=== PATIENT | female | born 1985 | race Caucasian/White ===

== ENCOUNTER 2019-04-02 05:56 | Inpatient (IN) ==
[2019-04-02] MEDS ORDERED: LIDOCAINE HCL 50 ML VIAL PERI PRN (06:13)
[2019-04-02] MEDS ORDERED: ONDANSETRON 4 MG TAB.RAPDIS PO PRN (06:13)
[2019-04-02] MEDS ORDERED: RINGER'S SOLUTION,LACTATED 1,000 ML IV PRN (06:13)
[2019-04-02] MEDS ORDERED: OXYTOCIN/DEXTROSE 5%-WATER 30 UNITS/500 ML BAG IV ONE ×2 (06:13→19:08)
[2019-04-02] MEDS ORDERED: NALBUPHINE HCL 10 MG/ML AMPUL IV PRN ×2 (06:13)
[2019-04-02 07:00] LABS: Cocaine Ur Negative (NEGATIVE); Urine Barbiturate Negative (NEGATIVE); Urine Benzodiazepines Negative (NEGATIVE); Urine Opiates Negative (NEGATIVE); Urine PCP Negative (NEGATIVE); Urine THC Negative (NEGATIVE)
[2019-04-02] MEDS ORDERED: MISOPROSTOL 100 MCG TABLET VG ONE (07:09)
[2019-04-02] MEDS ORDERED: TERBUTALINE SULFATE 1 MG/ML VIAL SC ONE (07:51)
--- NOTE | 2019-04-02 08:38 | HP ---
Chief Complaint - Chief Complaint Date of Service: 04/02/19 Time of Service: 08:30 Chief Complaint: Labor induction History of Present Illness: 33 year old at 39w 1d who presents to labor and delivery for a medical induction of labor due to CHTN. She denies regular ctx, vb or lof. Fetus is active. 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 Surgical History: Surgical History (Updated 08/11/18 @ 16:47 by Taniya Shoemaker LPN) History of loop electrosurgical excision procedure (LEEP) Onset Date: ~2012 abnormal pap smear History of removal of cyst right wrist x2 History of tonsillectomy age 19 History of wisdom tooth extraction Hx of cholecystectomy Onset Date: ~2012 Family History: Family History (Updated 08/14/18 @ 15:24 by Angelia Bradley CMA) Mother Diabetes type II DM Father Alive and well Grandmother , maternal Cancer breast CA (BRCA) Social History: (Last Reviewed 04/02/19 @ 08:33 by Jacque Her MD) Social History: adopted: No Marital status: household members: children, spouse current occupational status: employed current occupation: [employer] current occupational exposures/hazards: No Highest education level completed: some college, no degree Service: No Tobacco: Smoking Status: Current every day smoker tobacco type: cigarettes Alcohol: alcohol intake: current alcohol intake frequency: holiday/special occasion Substance Use: substance use type: does not use Dietary Habits: caffeine: Yes caffeine comment: 6 daily Type: carbonated beverages Review Of Systems (GEN) - Review of Systems Generalized/Overall Review: Present: No Symptoms Reported Misc: All systems neg except as marked Allergies/Adverse Reactions: Allergies Allergy/AdvReac Type Severity Reaction Status Date / Time morphine AdvReac hives Verified 04/02/19 06:12 tomato AdvReac cold sores Verified 04/02/19 06:12 latex AdvReac RASH Uncoded 04/02/19 06:12 Exam - Exam Vital Signs: Vital Signs - Last Taken Temp 36.3 C 04/02/19 06:58 Pulse 72 04/02/19 06:58 Resp 18 04/02/19 06:58 BP 123/64 04/02/19 06:58 Pulse Ox 98 04/02/19 06:58 Constitutional: Present: Alert, Oriented x3, Cooperative, No distress Respiratory: Present: lungs clear, normal breath sounds Cardiovascular/Chest: Present: regular rate, rhythm, no murmur Abdomen: Present: soft, nontender, nondistended /Rectal: Present: Exam deferred Extremity: Present: non-tender, no calf tenderness Skin Exam: Present: normal color, warm/dry, no cyanosis Appearance: Present: appropriate appearance Eye contact: Present: cooperative Thoughts: Present: normal thought pattern Diagnostic Studies: Laboratory Results Negative (NEGATIVE) 04/02/19 Unknown Negative (NEGATIVE) 04/02/19 Unknown Ur Phencyclidine Scrn Negative (NEGATIVE) 04/02/19 Unknown Urine Amphetamine Negative (NEGATIVE) 04/02/19 Unknown U Benzodiazepines Scrn Negative (NEGATIVE) 04/02/19 Unknown Negative (NEGATIVE) 04/02/19 Unknown Negative (NEGATIVE) 04/02/19 Unknown Blood Type AB Negative 04/02/19 06:27 Antibody Screen Positive 04/02/19 06:27 Assessment/Plan - Narrative Narrative: 33 year old at 39w 1d 1. Medical IOL for CHTN: BP is normal today. Cytotec started due to nonfavorable cervix 2. GBS negative: prophylaxis not indicated 3. FHT cat 1. Of note, the patient had a 4-minute deceleration to a nguyen of 60 which resolved spontaneously. A fluid bolus was given.
[2019-04-02] MEDS ORDERED: ONDANSETRON HCL/PF 2 MG/ML VIAL IV PRN (13:49)
[2019-04-02] MEDS ORDERED: BUPIVACAINE HCL/0.9 % NACL/PF 250 ML EP PRN (13:49)
[2019-04-02] MEDS ORDERED: NALOXONE HCL 1 MG/1 ML SYRG IV PRN (13:49)
[2019-04-02] MEDS: RINGER'S SOLUTION,LACTATED 1,000 ML IV ONE (13:57)
[2019-04-02] MEDS ORDERED: fentaNYL CITRATE/PF 50 MCG/ML AMPUL IT SCH (14:00)
--- NOTE | 2019-04-02 14:33 | ANES ---
Anesthesia Pre Procedure Eval Vitals/Labs: Last Vital Signs Temp 36.2 C 04/02/19 14:20 Pulse 60 04/02/19 14:20 Resp 18 04/02/19 14:20 BP 127/69 04/02/19 14:20 Pulse Ox 99 04/02/19 14:20 Allergies/Adverse Reactions: Allergies Allergy/AdvReac Type Severity Reaction Status Date / Time morphine AdvReac hives Verified 04/02/19 06:12 tomato AdvReac cold sores Verified 04/02/19 06:12 latex AdvReac RASH Uncoded 04/02/19 06:12 - Planned Procedure Planned Procedure: INDUCTION Medication List Reviewed:: Yes Allergies Verified: Yes Medical History (Updated 04/02/19 @ 08:38 by Jacque Her MD) High-risk supervision (Chronic) Chronic hypertension (Acute) The patient's BP is normal today Reactive NST Normal CONSUELO B12 deficiency Onset Date: ~2017 Rh incompatibility Tobacco abuse Anxiety and depression Abnormal Pap smear of cervix Onset Date: ~2012 Anemia Benign heart murmur congenital, 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 Surgical History (Updated 04/02/19 @ 08:38 by Jacque Her MD) History of loop electrosurgical excision procedure (LEEP) Onset Date: ~2012 abnormal pap smear History of removal of cyst right wrist x2 History of tonsillectomy age 19 History of wisdom tooth extraction Hx of cholecystectomy Onset Date: ~2012 Family History (Updated 08/14/18 @ 15:24 by Angelia Bradley CMA) Mother Diabetes type II DM Father Alive and well Grandmother , maternal Cancer breast CA (BRCA) - Family Anesthesia History Family History:: no untoward family reactions to anesthesia - Airway/Neck/Teeth Within Normal Limits:: Yes Teeth Condition: intact Neck Exam: full range of motion Mallampatti Score: 2 Thyromental (T-M) distance: > 6 cm Mandibulo Hyoid distance: > 3 cm - Respiratory Respiratory Physical: lungs clear Smoking Status: Current every day smoker Discussed smoking cessation including day of surgery: Yes Sleep Apnea currently treated: No Sleep Apnea by current assessment: No - Cardiovascular Tolerate Activity: Fair Heart Sounds: S1 & S2, Regular - Anesthesia Assessment and Plan ASA Class: PS, II, E Anesthesia Type Plan: Epidural Planned difficult intubation/equipment available: No
--- NOTE | 2019-04-02 14:34 | ANES ---
Post Anesthesia Assessment - Vital Signs Vitals: Last Vital Signs Temp 36.2 C 04/02/19 14:20 Pulse 60 04/02/19 14:20 Resp 18 04/02/19 14:20 BP 127/69 04/02/19 14:20 Pulse Ox 99 04/02/19 14:20 Airway Patency: Normal - Mental Status Level Of Consciousness: Awake - Pain Level Pain Score: 2 - N/V Assessment Nausea/Vomiting Presence: None Dehydration:: No
--- NOTE | 2019-04-02 14:34 | ANES ---
Post Anesthesia Discharge - Transfer of Care Transfer of Care handoff given to nurse: Yes - Anesthesia Post Op Note Anesthesia Post Op Note: Care transferred to OB RN
--- NOTE | 2019-04-02 14:35 | ANES ---
Anesthesia Procedure Note Procedure Note: ANESTHESIA PROCEDURE NOTE Date of Procedure: 04/02/2019 Time of procedure: 1410. Performed by: Wilton Galvez CRNA Parliamentary Archivist: None. Preprocedure diagnosis: Active labor. Post procedure diagnosis: Same. Procedure: Insertion of labor epidural. Indications: The patient is a 33-year-old multigravida female in active labor requesting labor epidural for pain management. Findings: See below. Details of the procedure: The patient was placed in a sitting position. Back was prepped with DuraPrep. Patient was then draped in a sterile fashion. Lidocaine 1% was infiltrated to the skin and subcutaneous tissues at the level of the L3 4 interspace. The epidural space was identified using a 18-gauge Tuohy needle with [id number] technique. 20 mcg fentanyl was given intrathecally using a 27 ga. spinal needle. Epidural catheter was inserted without difficulty. Negative test dose was elicited using 5 mL of 1.5% preservative-free lidocaine plus epinephrine 1 200,000. The epidural catheter was then taped and secured in place. EBL: Minimal. Fluids: N/A. Specimen: N/A. Post procedure condition: The patient tolerated the procedure well. No complications were noted. Thank you for this consultation. Guthrie CRNA
--- NOTE | 2019-04-02 15:21 | PN ---
[place] Note - Interim Date: 04/02/19 Time: 15: Narrative: 04/02/19 15:19 The patient is very uncomfortable with exams AROM without difficulty The patient's cervix is 3/70/-1 and still posterior IUPC placed The patient would not tolerate an FSE being placed She had a deceleration and was given terbutaline for it with good recovery Patient to have her epidural and then can place FSE FHT is now cat 1
[2019-04-02] MEDS ORDERED: BENZOCAINE/MENTHOL 81 SPRAY CAN TP PRN (19:08)
[2019-04-02] MEDS ORDERED: oxyCODONE HCL/ACETAMINOPHEN 1 TAB TABLET PO PRN (19:08)
[2019-04-02] MEDS ORDERED: SENNOSIDES 8.6 MG TABLET PO PRN (19:08)
[2019-04-02] MEDS ORDERED: GLYCERIN/WITCH HAZEL LEAF 40 APPL BOX TP PRN (19:08)
[2019-04-02] MEDS ORDERED: HYDROCORTISONE 30 APPL TUBE TP PRN (19:08)
[2019-04-02] MEDS ORDERED: BISACODYL 10 MG SUPP.RECT RC PRN (19:08)
--- NOTE | 2019-04-02 19:08 | OR ---
Operative Report - Dictated Report Narrative: Date of delivery: 04/02/2019 Time of delivery: 1851 Gender: male APGARS: 99 Birthweight: 3395 grams Procedure: Description of the procedure: The patient is a 33 year old @ 39w 1d who presented for a medical IOL due to CHTN. She received one dose of misoprostol followed by pitocin and AROM. She progressed to complete dilation. She delivered a viable male in the JOJO presentation. The cord was clamped and cut and the was placed on the maternal abdomen. The placenta was delivered by expression and appeared intact. Lacerations as listed below and not repaired as they were both superficial and hemostatic. Lacerations: first degree perineal and left periurethral EBL: 100 mL Complications: none Specimen: placenta History for Definition: * The number of deliveries resulting in a live the patient experienced prior to current hospitalization * The previous delivery of live twins or any live multiple gestation is considered one live event. *If primagravida or nulliparous is documented select zero for the number of previous live births. Live Events: 3
[2019-04-02] MEDS: oxyCODONE HCL/ACETAMINOPHEN 1 TAB TABLET PO PRN (22:14)
[2019-04-02] MEDS: IBUPROFEN 800 MG TABLET PO PRN (22:14)
[2019-04-03] MEDS: oxyCODONE HCL/ACETAMINOPHEN 1 TAB TABLET PO PRN ×4 (02:10→22:07)
[2019-04-03] MEDS: DOCUSATE SODIUM 100 MG CAPSULE PO SCH ×4 (02:14→20:24)
[2019-04-03] MEDS: IBUPROFEN 800 MG TABLET PO PRN ×3 (04:20→22:08)
[2019-04-03] MEDS ORDERED: ceFAZolin SODIUM/DEXTROSE,ISO 2 GM/50 ML BAG IV PRN (06:00)
--- NOTE | 2019-04-03 06:31 | PN ---
Subjective - Date and Time Seen Date: 04/03/19 Time: 06:30 Subjective Narrative: Patient without complaints Objective Objective Narrative: See vital signs - Review of Systems Generalized/Overall Review: Reports: No Symptoms Reported Misc: All systems neg except as marked - Vitals Vitals: Last Vital Signs Temp 35.8 C L 04/03/19 00:45 Pulse 81 04/03/19 00:45 Resp 16 04/03/19 00:45 BP 144/67 H 04/03/19 00:45 Pulse Ox 97 04/03/19 00:45 - Exam Constitutional: Present: Alert, Oriented x3, Cooperative, No distress Abdomen: Present: soft, nontender, nondistended - fundus is firm Extremity: Present: non-tender, no calf tenderness Skin Exam: Present: normal color, warm/dry, no cyanosis Appearance: Present: appropriate appearance Eye contact: Present: cooperative Thoughts: Present: normal thought pattern Cauti Physician Documentation - Urinary Catheter Management Urethral (Conroy) Urethral Indwelling: No Date of Insertion: 04/02/19 Time of Insertion: 14:15 Assessment/Plan Plan Narrative: PPD 1 s/p Doing well tubal today Discharge tomorrow
[2019-04-03] MEDS: RINGER'S SOLUTION,LACTATED 1,000 ML IV ONE (09:18)
[2019-04-03] MEDS ORDERED: LIDOCAINE HCL/EPINEPHRINE 30 ML VIAL IJ ONE (09:19)
--- NOTE | 2019-04-03 09:45 | ANES ---
Anesthesia Pre Procedure Eval Vitals/Labs: Last Vital Signs Temp 36.6 C 04/03/19 07:53 Pulse 67 04/03/19 07:53 Resp 14 04/03/19 07:53 BP 119/66 04/03/19 07:53 Pulse Ox 98 04/03/19 07:53 Allergies/Adverse Reactions: Allergies Allergy/AdvReac Type Severity Reaction Status Date / Time morphine AdvReac hives Verified 04/02/19 06:12 tomato AdvReac cold sores Verified 04/02/19 06:12 latex AdvReac RASH Uncoded 04/02/19 06:12 - Planned Procedure Planned Procedure: 04/02/19@1852, gbs -, ofelia. 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 Surgical History (Updated 04/03/19 @ 09:23 by Lexi Fregoso RN) History of loop electrosurgical excision procedure (LEEP) Onset Date: ~2012 abnormal pap smear History of removal of cyst right wrist x2 History of tonsillectomy age 19 History of wisdom tooth extraction Hx of cholecystectomy Onset Date: ~2012 Family History (Updated 08/14/18 @ 15:24 by Angelia Bradley CMA) Mother Diabetes type II DM Father Alive and well Grandmother , maternal Cancer breast CA (BRCA) - Family Anesthesia History Family History:: no untoward family reactions to anesthesia - Airway/Neck/Teeth Within Normal Limits:: Yes Teeth Condition: intact Neck Exam: full range of motion Mallampatti Score: 2 Thyromental (T-M) distance: > 6 cm Mandibulo Hyoid distance: > 3 cm - Respiratory Respiratory Physical: lungs clear Smoking Status: Former smoker Sleep Apnea currently treated: No Sleep Apnea by current assessment: No - Cardiovascular Tolerate Activity: Good Heart Sounds: S1 & S2, Regular - Anesthesia Assessment and Plan ASA Class: PS, II Anesthesia Type Plan: General ET Planned difficult intubation/equipment available: No
--- NOTE | 2019-04-03 09:45 | ANES ---
Post Anesthesia Discharge - Transfer of Care Transfer of Care handoff given to nurse: Yes - Discharge from PACU Discharge from PACU when meets criteria: Yes
--- NOTE | 2019-04-03 09:56 | OR ---
Operative Report - Dictated Report Narrative: Preoperative diagnosis: desires sterilization Postoperative diagnosis: same Procedure: bilateral salpingectomy Surgeon: Dr. Her Anesthesia: General Anesthesiologist: Wilton Galvez CRNA Description of the procedure: The patient was taken to the operating room where GETA was induced without difficulty. She was then prepped and draped in the supine position in the standard surgical fashion. A 5 cm skin incision was made in the infraumbilical area. The incision was carried through the subcutaneous tissue and the fascia. The peritoneum was entered sharply. The patient was then placed in Trendelenberg. The bowel was packed away. The left fallopian tube was identified by following it to the fimbriated end. The tube was cut along the mesosalpinx using the Ligasure device. There was an area that was not hemostatic and this was made hemostatic with electrocautery. The same procedure was repeated on the right. All instruments were removed from the abdomen. The fascia was closed using 0- vicryl on a CT2 needle. The subcutaneous tissue was closed with 4-0 monocryl. Joice rhoades was placed over the incision. Ten mL of lidocaine with epinephrine was injected for analgesia. All sponge, lap, and needle counts were correct. The patient tolerated the procedure well. She was transferred to the recovery room in stable condition EBL: minimal Complications: none Specimens: fallopian tubes
[2019-04-04] MEDS: oxyCODONE HCL/ACETAMINOPHEN 1 TAB TABLET PO PRN ×3 (02:08→09:13)
[2019-04-04] MEDS: IBUPROFEN 800 MG TABLET PO PRN (05:16)
[2019-04-04] MEDS ORDERED: RINGER'S SOLUTION,LACTATED 1,000 ML IV PRN (06:00)
--- NOTE | 2019-04-04 07:51 | PN ---
Subjective - Date and Time Seen Date: 04/04/19 Time: 07:50 Subjective Narrative: Patient without complaints Objective Objective Narrative: See vital signs - Review of Systems Generalized/Overall Review: Reports: No Symptoms Reported Misc: All systems neg except as marked - Vitals Vitals: Last Vital Signs Temp 36.7 C 04/04/19 01:00 Pulse 61 04/04/19 01:00 Resp 18 04/04/19 01:00 BP 123/65 04/04/19 01:00 Pulse Ox 95 04/04/19 01:00 - Exam Constitutional: Present: Alert, Oriented x3, Cooperative, No distress Abdomen: Present: soft, nontender, nondistended - incision c/d/i Extremity: Present: non-tender, no calf tenderness Skin Exam: Present: normal color, warm/dry, no cyanosis Appearance: Present: appropriate appearance Eye contact: Present: cooperative Thoughts: Present: normal thought pattern Cauti Physician Documentation - Urinary Catheter Management Urethral (Conroy) Urethral Indwelling: No Date of Insertion: 04/02/19 Time of Insertion: 14:15 Assessment/Plan Plan Narrative: PPD 2 s/p and salpingectomy Doing well Discharge today Follow-up in 2 weeks for incision check
[2019-04-04 10:41] VITALS: BP 141/83
== END 2019-04-04 11:20 | disposition home or self-care (01) | DRG 797 ==
LOC: OB 05:56 → MS 04-03 00:32
PROVIDERS: ADMIT Obstetrics & Gynecology; ATTEND Obstetrics & Gynecology
CPT/HCPCS: 59025; 80307; 86850; 86870; 88302; 88307